=== PATIENT | female | born 1995 | race Caucasian/White ===

== ENCOUNTER → 2022-10-19 | Outpatient (CLI) | payer SELFPAY ==
[2022-10-19 13:11] LABS: Absolute Lymphocyte Count 1.02 X10^3/uL (0.83-4.51); Absolute Neutrophil Count 6.3 X10^3/uL (2.0-7.7); Basophil# 0.01 X10^3/uL; Basophil% 0.1 % (0-1); Eosinophil# 0.01 X10^3/uL; Eosinophils% 0.1 % (0-5); Hematocrit 36.8 % (37-47); Hemoglobin 12.2 g/dL (12.0-15.0); Lymphocyte # 1.02 X10^3/ul (0.83-4.51); Lymphocyte % 13.1 % (19-41); Mean Corp Hgb Conc 33.2 g/dL (32-36); Mean Corpuscular Hgb 29.5 pg (27.0-32.0); Mean Corpuscular Volume 89.1 fL (81-99); Mean Platelet Vol. 9.4 fl (6.2-12.0); Monocyte# 0.42 X10^3/uL; Monocyte% 5.4 % (0-10); NRBC Flagged by Analyzer 0 % (0-5); Neutrophil # 6.29 X10^3/uL (2.7-7.7); Platelet Count 309 K/mm3 (150-450); RBC Distribution Width CV 11.4 % (11.6-14.6); RBC Distribution Width SD 36.9 fl (35.1-43.9); Red Blood Count 4.13 M/mm3 (4.2-5.4); White Blood Count 7.8 K/mm3 (4.4-11.0)
[2022-10-19 13:50] LABS: NATERA MAILED SPECIMEN
[2022-10-19 14:19] LABS: HIV - WCH Non-Reactive (Nonreactive); Rubella IgG Reactive (Nonreactive); Syphilis Antibodies Non-reactive
[2022-10-19 14:38] LABS: Amphetamine Urine VISTA NEGATIVE (<1000 ng/mL); Barbiturate Urine VISTA NEGATIVE (< 200 ng/mL); Benzodiazepine Urine VISTA NEGATIVE (< 200 ng/mL); Cocaine Urine VISTA NEGATIVE (< 300 ng/mL); Ecstacy Urine VISTA NEGATIVE (< 500 ng/mL); Methadone Urine VISTA NEGATIVE (< 300 ng/mL); PCP Urine VISTA NEGATIVE (< 25 ng/mL); THC Urine VISTA NEGATIVE (< 50 ng/mL); Vista UDS pH Range 7
[2022-10-28 18:28] LABS: HPV APTIMA, High Risk Negative (Negative); HPV Reflexed? YES, CHARGE PATIENT
== END | disposition home or self-care (01) ==
PROVIDERS: Referring Provider Registered Nurse; Visit Provider Registered Nurse
DX: Z34.00 Encounter for supervision of normal first pregnancy, unspecified trimester (principal); Z12.4 Encounter for screening for malignant neoplasm of cervix
CPT/HCPCS: 36415; 80307; 85025; 86703; 86762; 86780; 86850; 86900; 86901; 87086; 87088; 87624; 88175; G0145

== ENCOUNTER → 2022-11-16 | Outpatient (CLI) | payer SELFPAY, OTHER ==
--- NOTE | 2022-11-16 08:09 | US_ITS ---
STUDY: SECOND AND THIRD TRIMESTER OBSTETRICAL ULTRASOUND REASON FOR EXAM: Female, 27 years old Anatomy scan LMP: 07/04/2022. TECHNIQUE: Transabdominal and Transvaginal TECHNICAL QUALITY: Adequate. PRIOR ULTRASOUND: None. FINDINGS: There is a single intrauterine fetus. The fetus is in a cephalic presentation. There is demonstrated cardiac activity with a heart rate of 132 bpm. There is a normal amniotic fluid volume. The largest amniotic fluid pocket measures 4.6 x 4.1 cm. The amniotic fluid index (IZZY) is within normal limits. The placenta is fundal in location. There are Grade 0 placental changes. The cervix measures 3.7 cm in length. The bilateral adnexal regions are normal. BIOMETRY: BPD: 4.67 cm: 20 weeks, 1 days HC: 16.98 cm: 19 weeks, 4 days AC: 15.14 cm: 20 weeks, 3 days FL: 3.08 cm: 19 weeks, 4 days CI: 81% FL/BPD: 66% FL/HC: FL/AC: 20% HC/AC: 1.12 age by current US: 19 weeks, 5 days. TOMMIE by current US: 04/07/2022. Estimated weight: 328 grams, +/- 29 grams, 62 %. Age by LMP: 19 weeks, 5 days. TOMMIE by LMP: 04/07/2022. ANATOMY: Gender: Male Cranium: Normal lateral ventricles. Normal choroid plexus. Normal cerebellum. Normal cisterna magna. Normal face, nose and lips. Chest: Normal 4-chamber heart. Abdomen/Pelvis: Normal diaphragm. Normal stomach. Normal abdominal wall. Normal cord insertion. Normal 3 vessel cord. Normal kidneys. Normal bladder. Spine: Normal cervical spine. Normal thoracic spine. Normal lumbar spine. Normal sacrum. Extremities: Normal bilateral upper extremities. Normal bilateral lower extremities. IMPRESSION: Single live intrauterine gestation with a mean gestational age of 19 weeks and 5 days. Electronically Signed: Adi Acuna MD at 12:41 EST , STUDY: FIRST TRIMESTER OBSTETRICAL ULTRASOUND REASON FOR EXAM: Female, 27 years old . Cervical length measurement LMP: 07/26/2022. TECHNIQUE: Transvaginal TECHNICAL QUALITY: Adequate. PRIOR ULTRASOUND: None. FINDINGS: The cervical length measures 3.7 cm US/OB Anatomy Scan IMPRESSION: The cervical length measures 3.7 cm. Electronically Signed: Adi Acuna MD at 12:41 EST ,
== END | disposition home or self-care (01) ==
PROVIDERS: Visit Provider Registered Nurse
DX: Z36.9 Encounter for antenatal screening, unspecified (principal); Z3A.19 19 weeks gestation of pregnancy
CPT/HCPCS: 76805; 76817

== ENCOUNTER → 2023-01-12 | Outpatient (CLI) | payer OTHER, SELFPAY ==
[2023-01-12 09:28] LABS: Absolute Lymphocyte Count 1.33 X10^3/uL (0.83-4.51); Absolute Neutrophil Count 6.5 X10^3/uL (2.0-7.7); Basophil# 0.02 X10^3/uL; Basophil% 0.2 % (0-1); Eosinophil# 0.06 X10^3/uL; Eosinophils% 0.7 % (0-5); Hematocrit 33.2 % (37-47); Hemoglobin 10.6 g/dL (12.0-15.0); Lymphocyte # 1.33 X10^3/ul (0.83-4.51); Lymphocyte % 15.3 % (19-41); Mean Corp Hgb Conc 31.9 g/dL (32-36); Mean Corpuscular Hgb 29.4 pg (27.0-32.0); Mean Platelet Vol. 9.3 fl (6.2-12.0); NRBC Flagged by Analyzer 0 % (0-5); Neutrophil # 6.53 X10^3/uL (2.7-7.7); Neutrophil % 75.1 % (47-70); Platelet Count 277 K/mm3 (150-450); RBC Distribution Width CV 11.8 % (11.6-14.6); RBC Distribution Width SD 39.3 fl (35.1-43.9); Red Blood Count 3.61 M/mm3 (4.2-5.4); White Blood Count 8.7 K/mm3 (4.4-11.0)
[2023-01-12 09:47] LABS: Glucose Challenge Gest 1H 50g 76 mg/dL (70-140)
[2023-01-12 10:19] LABS: HIV - WCH Non-Reactive (Nonreactive); Syphilis Antibodies Non-reactive
== END | disposition home or self-care (01) ==
LOC: PAVLAB 09:11
PROVIDERS: Referring Provider Registered Nurse; Visit Provider Registered Nurse
DX: Z34.00 Encounter for supervision of normal first pregnancy, unspecified trimester (principal)
CPT/HCPCS: 36415; 82950; 85025; 86703; 86780

== ENCOUNTER 2023-03-17 10:55 | Inpatient (IN) | payer SELFPAY, OTHER ==
[2023-03-17] VITALS (18 sets, daily range): BP systolic 106–131; BP diastolic 64–93; PULSE 76–98; RESP 14–16; TEMP 36.2–37.1; O2SAT 97–100; BMI 26.4
[2023-03-17] MEDS: Lactated Ringers 1,000 ML 999 ML IV (11:30)
[2023-03-17 11:47] LABS: Absolute Lymphocyte Count 1.05 X10^3/uL (0.83-4.51); Absolute Neutrophil Count 6.5 X10^3/uL (2.0-7.7); Basophil# 0.01 X10^3/uL; Basophil% 0.1 % (0-1); Eosinophil# 0.02 X10^3/uL; Eosinophils% 0.2 % (0-5); Hematocrit 36.1 % (37-47); Hemoglobin 12.3 g/dL (12.0-15.0); Lymphocyte # 1.05 X10^3/ul (0.83-4.51); Lymphocyte % 12.9 % (19-41); Mean Corp Hgb Conc 34.1 g/dL (32-36); Mean Corpuscular Hgb 29.9 pg (27.0-32.0); Mean Corpuscular Volume 87.8 fL (81-99); Mean Platelet Vol. 10.4 fl (6.2-12.0); Monocyte# 0.54 X10^3/uL; Monocyte% 6.6 % (0-10); NRBC Flagged by Analyzer 0 % (0-5); Neutrophil # 6.49 X10^3/uL (2.7-7.7); Neutrophil % 79.7 % (47-70); Platelet Count 263 K/mm3 (150-450); RBC Distribution Width CV 11.8 % (11.6-14.6); RBC Distribution Width SD 37.8 fl (35.1-43.9); Red Blood Count 4.11 M/mm3 (4.2-5.4); White Blood Count 8.2 K/mm3 (4.4-11.0)
[2023-03-17] MEDS: Lactated Ringers 1,000 ML 150 ML IV (12:32)
--- NOTE | 2023-03-17 12:52 | HP.PCM.OB_ITS ---
HPI - General General Date of Admission: 03/17/23 HPI Narrative JAYLEN WATKINS, is a 27 F who presents for LTCS due to breech and oligohydramnios. she had a routine visit today and had an reza of 2 cm and was breech. she has had nl fm and no regular ctx. she denies lof Maternal Data Information TOMMIE Calculator Estimated Delivery Date Method Current WG Current Estimate 04/07/23 LMP (Certain) 37w 0d PFSH PFSH Medical History (Updated 03/17/23 @ 12:[address] Lyric Coburn MD) History of malignant hyperthermia Oligohydramnios Home Medications vitamins no.163-iron bis-gly 20 mg-folate no.10 1 mg tablet (PNV Tabs 20-1) 1 tab PO DAILY 10/17/22 [History Last Taken 03/16/23 19:00 1 tab] ferrous sulfate 325 mg (65 mg iron) tablet 325 mg PO DAILY anemia 03/17/23 [History Last Taken 03/16/23 19:00 325 mg] Allergy/AdvReac Type Severity Reaction Status Date / Time No Known Allergies Allergy Verified 03/17/23 09:50 Family History Grandmother Uterine cancer, Onset Age: 50 Maternal Surgical History (Updated 03/17/23 @ 11:48 by Rodo Parker) History of surgery Social History adopted: No household members: spouse housing: house current occupational status: employed current occupation: [employer] current occupational exposures/hazards: No pets and animals: No history of recent travel: No sexually active: Yes Smoking Status: Never smoker alcohol intake: never substance use type: does not use well-balanced diet: daily or most days caffeine: Yes Type: coffee Number of servings: 1 eating out: rarely or never during the past year weight has: remained stable what type of physical activity do you participate in: none sandra/tenriism: Judaism seatbelt use: sometimes do you feel safe at home: Yes additional social history: Faustino- [employer] History 1 Elective abortions Hx Para 0 Spontaneous abortions Hx # Term Pregnancies Ectopic pregnancies Hx # Pregnancies Multiple births # of living children Visit Details Expected Delivery Route/Plan Labor Preferences- CB/BF classes: enc labor support person: Faustino labor intervention preferences: limited interventions pain management options preferred: open to epidural, hoping for unmedicated cut cord/dad catch: cord : yes PP control planned: NFP discussed possible routes of delivery and associated risks: [] special requests: [] Plans Covid status: unvaccinated Flu vaccine: declines Tdap vaccine: declines Rhogam: na LARC form signed: Problem list reviewed and updated with the most current plan of care details and appropriate orders placed. Relevant counseling for the gestational age provided. Continue routine care and follow up unless otherwise noted in visit notes/problem list details OB Flowsheet Initial Weight: Not Recorded Date -?-?-?-?-?-?--?-?-?-?-?-?- EGA Weight BP Urine Prot -?-?-?-?-?-?-?-?-?-?-?-?- Glucose FHR FuHt Pres Dilation -?-?-?-?-?-?-?-?-?-?-?-?- Effaced St Visit Note 10/19/22 -?-?-?-?-?-?-?-?-?-?-?-?- 15w 5d 121 lb 6 oz 134/80 -?-?-?-?-?-?-?-?-?-?-?-?- 144 15 -?-?-?-?-?-?-?-?-?-?-?-?- LC- HC/AC/FL =15 .5, TOMMIE based on LMP. 11/16/22 -?-?-?-?-?-?-?-?-?-?-?-?- 19w 5d 129 lb 6 oz 122/70 Nega tive -?-?-?-?-?-?-?-?-?-?-?-?- Negative 157 -?-?-?-?-?-?-?-?-?-?-?-?- MH-No VB. Had a natomy US today. Denies concerns 12/22/22 -?-?--?-?-?-?-?-?-?-?-?-?- 24w 6d 133 lb 124/78 Negative -?-?-?-?-?-?-?-?-?-?-?-?- Negative 138 23 -?-?-?-?-?-?-?-?-?-?-?-?- LC- doing well. no vb/lof. occ fm. normal anatomy. 28 week labs ordered. 01/12/23 -?-?-?-?-?-?-?-?-?-?-?-?- 27w 6d 140 lb 6 oz 122/80 Nega tive -?-?-?-?-?-?-?-?-?-?-?-?- Negative 153 27 -?-?-?-?-?-?-?-?-?-?-?-?- JV- no lof, vagi nal bleeding, or dec fm. normal glucola. encouraged use of chlorophyll for mild anemia 01/24/23 -?-?-?-?--?-?-?-?-?-?-?-?- 29w 4d 142 lb 127/77 Negative -?-?-?-?-?-?-?-?-?-?-?-?- Negative 138 29 -?-?-?-?-?-?-?-?-?-?-?-?- LC- no lof/vb/ct x. good fm. started on iron supplement. 02/07/23 -?-?-?-?-?-?-?-?-?-?-?-?- 31w 4d 145 lb 117/81 Negative -?-?-?-?-?-?-?-?-?-?-?-?- Negative 142 31 -?-?-?-?-?-?-?-?-?-?-?-?- Lc- no lof/vb/ct x. good fm. denies concerns. 02/21/23 -?-?-?-?-?-?-?-?-?-?-?-?- 33w 4d 149 lb 120/74 Negative -?-?-?-?-?-?-?--?-?-?-?-?- Negative 138 33 -?-?-?-?-?-?-?-?-?-?-?-?- Lc- no lof/vb/ct x. larc signed, declines tdap. no concerns. 03/07/23 -?-?-?-?-?-?-?-?-?-?-?-?- 35w 4d 151 lb 145/83 137/86 128/81 Negative -?-?-?-?-?-?-?-?-?-?-?-?- Negative 142 35 -?-?-?-?-?-?-?-?-?-?-?-?- LC- no lof/vb/ct x. good fm. no concerns. reviewed labor signs 03/17/23 -?-?-?-?-?-?-?-?-?-?-?-?- 37w 0d 154 lb 5.177 oz 125/93 -?-?-?-?-?-?-?-?-?-?-?-?- -?-?-?-?-?-?-?-?-?-?-?-?- NST FHR Rate Baby A Baseline: 130 Variability:: Moderate Accelerations:: 15 x 15 Decelerations:: None NST Reactive:: Yes FHR Category:: Category I Uterine Activity:: irregular ROS Constitutional Constitutional: Reports systems reviewed and no addt'l complaints, except as documented Eyes Eyes: Denies change in vision ENT HEENT: Reports systems reviewed and no addt'l complaints, except as documented; Denies headache(s) Cardiovascular Cardiovascular: Reports systems reviewed and no addt'l complaints, except as documented; Denies chest pain or dyspnea Respiratory/Chest Respiratory/Chest: Reports systems reviewed and no addt'l complaints, except as documented Gastrointestinal Gastrointestinal: Reports systems reviewed and no addt'l complaints, except as documented; Denies abdominal pain Genitourinary Genitourinary: Reports systems reviewed and no addt'l complaints, except as documented, contractions Details: present (irregular) and movement Details: present; Denies dysuria or genital lesions Musculoskeletal Musculoskeletal: Reports systems reviewed and no addt'l complaints, except as documented Neurologic Neurologic: Reports systems reviewed and no addt'l complaints, except as documented Endocrine Endocrinology: Reports systems reviewed and no addt'l complaints, except as documented Vital Signs Vital Signs Vital Signs: 03/17/23 11:12 03/17/23 11:12 03/17/23 11:13 Temperature Temperature Source Temporal Pulse Rate 95 Blood Pressure 125/93 H BP Systolic 125 BP Diastolic 93 Pulse Ox 03/17/23 11:13 03/17/23 11:13 03/17/23 11:13 Temperature 98.3 F Temperature Source Pulse Rate 92 Blood Pressure BP Systolic BP Diastolic Pulse Ox 99 Weight Weight: 154 lb 5.177 oz Body Mass Index (BMI) 26.4 Physical Exam Const alert, oriented x3, no apparent distress and healthy appearing HEENT normocephalic and moist oral mucous membranes Head and Scalp: atraumatic Neck full ROM, no lymphadenopathy, supple and thyroid normal General: trachea midline Lymph Lymphatic: no lymphadenopathy noted Chest inspection of chest normal Resp normal respiratory effort Cardio regular rate GI normal to inspection, nondistended, normoactive bowel sounds, soft to palpation and non-tender Inspection: gravid external exam normal Manual OB Exam: estimated gestational size appropriate, presentation breech, dilated, effaced and station Extremity normal to inspection General Extremity: Negative for edema Skin no rashes or lesions noted Neuro no focal motor deficits and deep tendon reflexes 2+ bilaterally Motor Exam: strength 5/5 throughout and clonus absent Psych mental status grossly normal Labs Labs Labs: Blood Type AB POSITIVE Antibody Screen NEGATIVE Hct 36.1 % (37-47) L Hgb 12.3 g/dL (12.0-15.0) Obstetrics US Syphilis Total Ab Non-reactive Rubella IgG Antibody Reactive (Nonreactive) Hep Bs Antigen Pending HIV 1&2 Antibody Non-Reactive (Nonreactive) Glucose 1 Hr 50 gm 76 mg/dL (70-140) Assessment & Plan (1) : QUALIFIERS: Weeks of gestation: 27 weeks Qualified Code(s): Z3A.27 - 27 weeks gestation of COMMENT: NIPT low risk, carrier testing neg. 274/274. nl anatomy (2) Supervision of normal first : COMMENT: PRR. , TOMMIE 04/07/23,boy- Osman Faustino (3) Mild anemia: COMMENT: iron supplementation (4) Breech presentation: (5) Oligohydramnios in third trimester: COMMENT: proceed with LTCS delivery 37 weeks PLAN: Plan After discussing the patient's diagnosis and treatment plan options, patient wishes to proceed with surgical management. I have discussed with the patient the risks, benefits, and alternatives of the procedure which include but are not limited to risks of anesthesia, bleeding, infection, possible damage to bowel, bladder, or surrounding vasculature which could lead to additional surgery to evaluate any complications. Patient agrees to procedure and wishes to proceed. ACOG/uptodate references given for additional information regarding procedure.
[2023-03-17 13:12] LABS: Syphilis Antibodies Non-reactive
[2023-03-17 13:32] LABS: Hepatitis B Surface Antigen Non-Reactive (Nonreactive); Hepatitis C Antibody Non-Reactive (Nonreactive)
[2023-03-17] MEDS: Acetaminophen 500 MG Tablet 1000 MG PO ×2 (13:58→20:32)
[2023-03-17 14:30] LABS: Chlamydia Trachomatis by PCR Negative (Negative); Neisserai gonorrhoeae by PCR Negative (Negative); Probe Check PASS; Sample Adequacy Control PASS; Specimen Processing Control PASS
[2023-03-17] MEDS: Sodium Citrate/Citric Acid 30 ML UDC PO (15:20)
[2023-03-17] MEDS: Cefazolin 2 GM in 0.9% Normal Saline 100 ML IV (15:35)
[2023-03-17] MEDS: Methylergonovine 0.2 MG/ML Ampul IM (16:01)
[2023-03-17] MEDS: Oxytocin 15 Units/NS 250ml 15 UNITS/250 ML IV.SOLN 83 UNITS IV (16:35)
--- NOTE | 2023-03-17 17:00 | OP.PCM_ITS ---
Assessment & Plan (1) Supervision of normal first : COMMENT: PRR. , TOMMIE 04/07/23,jossie Brewer Faustino (2) : QUALIFIERS: Weeks of gestation: 27 weeks Qualified Code(s): Z3A.27 - 27 weeks gestation of COMMENT: NIPT low risk, carrier testing neg. 274/274. nl anatomy (3) Breech presentation: (4) Oligohydramnios in third trimester: COMMENT: proceed with LTCS delivery 37 weeks (5) Mild anemia: COMMENT: iron supplementation (6) delivery delivered: COMMENT: SM breech LTCS [place] [employer] 37 Maternal Data Information TOMMIE Calculator Estimated Delivery Date Method Current WG Current Estimate 04/07/23 LMP (Certain) 37w 0d Final TOMMIE Source: LMP Details Operative Information Date of Procedure: 03/17/23 Pre-Operative Diagnosis: breech Post-Operative Diagnosis: same Indications for : Breech Indications Narrative: Surgeon: Lyric Coburn MD Classification: Scheduled Procedure Type: low transverse commodity buyer #2: Daya Dominique Type of Anesthesia: Spinal Special Medications: none Antibiotic Given: Ancef 2 grams IV x1 Drain: Guthrie to straight drain Estimated Blood Loss: 600 Fluids Replaced: crystalloid Findings Description of Procedure: Spinal anesthesia was placed without difficulty. Guthrie catheter was placed. The patient was placed in the dorsal supine position with leftward tilt. Patient was prepped and draped in the normal sterile fashion. Pfannenstiel skin incision was made with the scalpel and carried through to the underlying layer of fascia with the scalpel. Fascia was nicked in the midline and the incision extended laterally. The rectus bellies were dissected off superiorly and inferiorly with out complication both sharply and bluntly. The peritoneum was entered digitally. The incision was stretched and a low transverse uterine incision was made with the scalpel. The buttox was delivered atraumatically and the right and left legs were swept anteriorly and delivered, followed by the body and the arms which were swept anteriorly and delivered. Gentle traction was placed on the mentum to flex the head which was delivered without complication. The cord was clamped and cut and the infant was handed off to awaiting nurse. The placenta was delivered spontaneously immediately following and was noted to be intact and have a three-vessel cord. The uterus was exteriorized cleared of all clots and debris, and the incision was closed in a double layer closure using #1 Monocryl. The ovaries and fallopian tubes were noted to be within normal limits. The uterus was returned to the maternal abdomen and gutters were cleared of all clots and debris. The peritoneum was closed with 3-0 Monocryl in a running fashion. Gloves were changed prior to fascial closure. Fascia was closed with 0 PDS in a running fashion. Subcutaneous tissue was copiously irrigated and the skin was closed with 3-0 Monocryl in a subcuticular fashion. Mepilex dressing was applied without complication. Patient was taken to recovery in stable condition. It was discussed with the patient that based on the clinical information obtained du ring this encounter, combined with her history, at this time I would recommend vaginal or cesareans for future deliveries if further pregnancies are desired. Amniotic Membrane Rupture Type: Artificial Amniotic Fluid Description: Clear Placenta Disposition: [facility] Cord Vessel Description: 3 Vessels Delayed Cord Clamping: Yes Complications Risks of Surgery Discussed w/Patient: Bleeding, Infection, Need for Future C- Sections and Injury to surrounding structure(s) including bowel and bladder Vaginal Delivery Complication Complications: None Admit VTE Documentation VTE Present on Admission: No VTE Mechan Device Prophylaxis: SCD's Procedures Urinary/Genital [id number]: [id number] Delivery [facility]
--- NOTE | 2023-03-17 17:01 | DCINST_ITS ---
Discharge Instructions Diet Discharge Diet: No restrictions Activity Discharge Activity: Return to Normal Activity, May Drive (when pain free and off narcotic pain meds), May Shower and May Take a Tub Bath (in 4 weeks) May resume sexual activity in: 6 weeks Weight Bearing Status: Full weight bearing Lifting Restrictions: under 30 lbs for 6 weeks Dressing / Incision Call your doctor if your incision/area has: Continuous Slow Oozing, Sudden Increased Bleeding, Increased Pain/ Swelling, Increased Redness, Foul Smelling Discharge and - Call your doctor if you observe: Fever of 101 or Higher, Using more than 1 pad per hour, Shortness of breath, Chest pain and Uncontrolled pain Suture Line Care: Avoid Pulling/Pushing and Avoid Pinching/Bending Change Dressing in: 1 week (leave open to air after removed) Remove Dressing in: 1 week (if present) Cleanse incision/area with: Soap & Water and Keep Dressing Clean & Dry Follow Up Care Please Follow Up With: Lyric Coburn MD When: Call to make an appointment with your doctor for a postop visit in 2 and 6 weeks. Test Results: Test results from this visit will be discussed in further detail at your follow- up appointment, if applicable. Discharge Plan Admission Admit Date/Time: 03/17/23 10:55 Attending Provider: Lyric Coburn Primary Care Provider: Care Physician,No Primary Discharge Orders/Prescriptions Prescriptions: No Action PNV Tabs 20-1 20 mg iron- 1 mg tablet 1 tab PO DAILY ferrous sulfate 325 mg (65 mg iron) Tablet 325 mg PO DAILY Referrals / Follow Up: Care Physician,No Primary [Primary Care Provider] -
[2023-03-17] MEDS: Ketorolac 30 MG/ML Syringe IV ×2 (17:17→23:14)
[2023-03-17] MEDS: 0.9% Saline Lock 10 ML Syringe IV (17:18)
[2023-03-17] MEDS: Lactated Ringers 1,000 ML 100 ML IV (19:52)
--- NOTE | 2023-03-17 22:55 | NURSING ---
Pt up for first time with this RN and Calli PATEL at [id number]. When sitting on side of the bed, pt stated she felt slightly dizzy but not faint or like she was going to pass out. This RN instructed that we will just stay sitting for a few minutes and see if it gets better. Pt stated she felt better and wanted to try to stand up. When standing up and taking a few steps in place, pt said she felt kind of dizzy again but it wasn't severe and again did not feel like she was going to pass out. She opted to want to walk a few steps instead of get in bed and said she felt good, just slight tightness in her incision area. Pt got back in bed and felt fine.
[2023-03-18] VITALS (7 sets, daily range): BP systolic 100–123; BP diastolic 53–73; PULSE 76–94; RESP 14–16; TEMP 36.9–37.3; O2SAT 97–99
[2023-03-18] MEDS: Acetaminophen 500 MG Tablet 1000 MG PO ×4 (02:39→20:04)
[2023-03-18 04:45] LABS: Hematocrit 31.3 % (37-47); Hemoglobin 10.3 g/dL (12.0-15.0); Mean Corp Hgb Conc 32.9 g/dL (32-36); Mean Corpuscular Hgb 29.9 pg (27.0-32.0); Mean Corpuscular Volume 90.7 fL (81-99); Mean Platelet Vol. 10.2 fl (6.2-12.0); Platelet Count 216 K/mm3 (150-450); RBC Distribution Width CV 11.8 % (11.6-14.6); RBC Distribution Width SD 38.5 fl (35.1-43.9); Red Blood Count 3.45 M/mm3 (4.2-5.4); White Blood Count 9.4 K/mm3 (4.4-11.0)
[2023-03-18] MEDS: Ketorolac 30 MG/ML Syringe IV ×2 (05:23→12:10)
[2023-03-18] MEDS: 0.9% Saline Lock 10 ML Syringe IV ×2 (05:23→12:11)
[2023-03-18] MEDS: Senna/Docusate Sodium 1 Tablet PO (08:29)
--- NOTE | 2023-03-18 10:00 | PCM.PN.OB ---
Subjective Subjective Patient doing well without complaints. Tolerating PO. Ambulating and voiding without difficulty. Feeding well. Denies chest pain, shortness of breath, calf pain/swelling, fevers, chills, lightheadedness. Objective Data Objective Data Vital Signs: Vital Signs Temp Pulse Resp BP Pulse Ox O2 Del Method 98.6 F 76 14 100/70 97 Room Air 03/18/23 08:35 03/18/23 08:35 03/18/23 08:35 03/18/23 08:35 03/18/23 08:35 03/18/23 08:35 Oxygen Delivery Method Room Air Weight: 154 lb 5.177 oz Body Mass Index (BMI) 26.4 Intake & Output: Intake and Output for Last 24 Hours 03/16/23 03/17/23 03/18/23 23:59 23:59 23:59 Intake Total 2070 / 2070 700 / 700 Output Total 1650 / 1650 800 / 800 Balance 420 / 420 -100 / -100 Lab / Micro Data Attestation: I reviewed the patient's lab results. Result Diagrams: 03/18/23 04:36 Labs: Laboratory Results - last 24 hr 03/17/23 11:30: WBC 8.2, RBC 4.11 L, Hgb 12.3, Hct 36.1 L, MCV 87.8, MCH 29.9, MCHC 34.1, RDW Std Deviation 37.8, RDW Coeff of Kalani 11.8, Plt Count 263, MPV 10.4, Immature Gran % (Auto) 0.500, Neut % (Auto) 79.7 H, Lymph % (Auto) 12.9 L, [place] % (Auto) 6.6, Eos % (Auto) 0.2, Baso % (Auto) 0.1, Absolute Neuts (auto) 6.5, Absolute Lymphs (auto) 1.05, Nucleated RBC % 0 03/17/23 11:30: Blood Type AB POSITIVE, Antibody Screen NEGATIVE 03/17/23 11:30: Syphilis Total Ab Non-reactive 03/17/23 11:30: Hep Bs Antigen Non-Reactive, Hepatitis C Antibody Non-Reactive 03/17/23 12:10: Chlam trachomat DNA PCR Negative, N.gonorrhoeae DNA (PCR) Negative 03/18/23 04:36: WBC 9.4, RBC 3.45 L, Hgb 10.3 L, Hct 31.3 L, MCV 90.7, MCH 29.9, MCHC 32.9, RDW Std Deviation 38.5, RDW Coeff of Kalani 11.8, Plt Count 216, MPV 10.2 Micro: Microbiology 03/17/23 14:35 Genital vaginal Group B Streptococcus Culture - Preliminary ROS Constitutional Constitutional: Reports systems reviewed and no addt'l complaints, except as documented Eyes Eyes: Reports systems reviewed and no addt'l complaints, except as documented ENT HEENT: Reports systems reviewed and no addt'l complaints, except as documented Cardiovascular Cardiovascular: Reports systems reviewed and no addt'l complaints, except as documented Respiratory/Chest Respiratory/Chest: Reports systems reviewed and no addt'l complaints, except as documented Gastrointestinal Gastrointestinal: Reports systems reviewed and no addt'l complaints, except as documented Genitourinary Genitourinary: Reports systems reviewed and no addt'l complaints, except as documented Musculoskeletal Musculoskeletal: Reports systems reviewed and no addt'l complaints, except as documented Integumentary Integumentary: Reports systems reviewed and no addt'l complaints, except as documented Neurologic Neurologic: Reports systems reviewed and no addt'l complaints, except as documented Psychiatric Psychiatric: Reports systems reviewed and no addt'l complaints, except as documented Endocrine Endocrinology: Reports systems reviewed and no addt'l complaints, except as documented Hematologic/Lymphatic Hematologic/Lymphatic: Reports systems reviewed and no addt'l complaints, except as documented Allergic/Immunologic Allergic/Immunologic: Reports systems reviewed and no addt'l complaints, except as documented Physical Exam Const alert and no apparent distress Eyes PERRL Neck full ROM and no lymphadenopathy Lymph Lymphatic: no lymphadenopathy noted Chest inspection of chest normal and palpation of chest normal Resp normal respiratory effort, normal air movement, no retractions and no use of accessory muscles Cardio regular rate and regular rhythm GI normal to inspection, nondistended, normoactive bowel sounds GI Narrative: fundus firm, at u. moderate lochia. no clots Back/Spine normal ROM Extremity normal to inspection and full ROM Skin no rashes or lesions noted Skin Narrative: dressing clean, dry and intact. Assessment & Plan (1) delivery delivered: COMMENT: SM breech LTCS [place] boy azul 35 PLAN: s/p LTCS PPD #1 1. routine post care 2. breast feeding- support given 3. rh positive 4. rubella immune
[2023-03-18] MEDS: Naproxen 500 MG Tablet PO (17:59)
[2023-03-19] MEDS: Naproxen 500 MG Tablet PO ×2 (02:06→09:21)
[2023-03-19] MEDS: Acetaminophen 500 MG Tablet 1000 MG PO ×2 (02:07→08:19)
[2023-03-19 02:09] VITALS: BP 115/71; PULSE 85; RESP 16; TEMP 37.1; O2SAT 98
[2023-03-19 08:18] VITALS: BP 112/74; PULSE 86; RESP 16; TEMP 37.1; O2SAT 97
[2023-03-19] MEDS: Senna/Docusate Sodium 1 Tablet PO (08:19)
--- NOTE | 2023-03-19 08:49 | PCM.PN.OB ---
Subjective Subjective Patient doing well without complaints. Tolerating PO. Ambulating and voiding without difficulty. Feeding well. Denies chest pain, shortness of breath, calf pain/swelling, fevers, chills, lightheadedness. Objective Data Objective Data Vital Signs: Vital Signs Temp Pulse Resp BP Pulse Ox O2 Del Method 98.7 F 86 16 112/74 97 Room Air 03/19/23 08:18 03/19/23 08:18 03/19/23 08:18 03/19/23 08:18 03/19/23 08:18 03/19/23 08:18 Oxygen Delivery Method Room Air Weight: 154 lb 5.177 oz Body Mass Index (BMI) 26.4 Intake & Output: Intake and Output for Last 24 Hours 03/17/23 03/18/23 03/19/23 23:59 23:59 23:59 Intake Total 2070 / 2070 700 / 700 Output Total 1650 / 1650 1500 / 1500 Balance 420 / 420 -800 / -800 Lab / Micro Data Attestation: I reviewed the patient's lab results. Result Diagrams: 03/18/23 04:36 Micro: Microbiology 03/17/23 14:35 Genital vaginal Group B Streptococcus Culture - Preliminary Physical Exam Const alert and no apparent distress Eyes PERRL Neck full ROM and no lymphadenopathy Lymph Lymphatic: no lymphadenopathy noted Chest inspection of chest normal and palpation of chest normal Resp normal respiratory effort, normal air movement, no retractions and no use of accessory muscles Cardio regular rate and regular rhythm GI normal to inspection, nondistended, normoactive bowel sounds GI Narrative: fundus firm, at u. scant lochia. no clots Back/Spine normal ROM Extremity normal to inspection and full ROM Skin no rashes or lesions noted Skin Narrative: dressing clean, dry and intact. Assessment & Plan (1) delivery delivered: COMMENT: SM breech LTCS [place] boy azul 35 PLAN: s/p LTCS PPD # 2 1. routine post care 2. breast feeding- support given 3. rh positive 4. rubella immune 5. d/c home today
--- NOTE | 2023-03-19 08:51 | PCM.DC.SUM ---
Providers Date of Admission: 03/17/23 Date of Discharge: 03/19/23 Primary Care Physician: No Primary Care Phys Reason For Visit: PRIMARY C SECTION Diagnosis Discharge Diagnosis (1) delivery delivered: Status: Acute Code(s): O82 - Encounter for delivery without indication Plan: s/p LTCS PPD # 2 1. routine post care 2. breast feeding- support given 3. rh positive 4. rubella immune 5. d/c home today Medications at Discharge Home Medications vitamins no.163-iron bis-gly 20 mg-folate no.10 1 mg tablet (PNV Tabs 20-1) 1 tab PO DAILY 10/17/22 ferrous sulfate 325 mg (65 mg iron) tablet 325 mg PO DAILY anemia 03/17/23 Hospital Course Operations section Procedures None Summary of Care Provided Hospital Course: c/s for breech and oligo at 37 weeks. stable course. Physical Exam Const alert and no apparent distress Eyes PERRL Neck full ROM and no lymphadenopathy Lymph Lymphatic: no lymphadenopathy noted Chest inspection of chest normal and palpation of chest normal Resp normal respiratory effort, normal air movement, no retractions and no use of accessory muscles Cardio regular rate and regular rhythm GI normal to inspection, nondistended, normoactive bowel sounds GI Narrative: fundus firm, at u. scant lochia. no clots Back/Spine normal ROM Extremity normal to inspection and full ROM Skin no rashes or lesions noted Skin Narrative: dressing clean, dry and intact. Weight / BMI Weight Weight: 154 lb 5.177 oz Body Mass Index (BMI) 26.4 ABG / Lab / Microbiology Data Result Diagrams: 03/18/23 04:36 Microbiology: Microbiology 03/17/23 14:35 Genital vaginal Group B Streptococcus Culture - Preliminary D/C Instructions Discharge Diet: No restrictions May resume sexual activity in: 6 weeks Weight Bearing Status: Full weight bearing Call your doctor if your incision/area has: Continuous Slow Oozing, Sudden Increased Bleeding, Increased Pain/ Swelling, Increased Redness, Foul Smelling Discharge and - Call your doctor if you observe: Fever of 101 or Higher, Using more than 1 pad per hour, Shortness of breath, Chest pain and Uncontrolled pain Suture Line Care: Avoid Pulling/Pushing and Avoid Pinching/Bending Cleanse incision/area with: Soap & Water and Keep Dressing Clean & Dry Please Follow Up With: Lyric Coburn MD When: Call to make an appointment with your doctor for a postop visit in 2 and 6 weeks. Meaningful Use Info Meaningful Use Diagnoses (Choose all that apply): None applicable Discharge Plan Admission Admit Date/Time: 03/17/23 10:55 Attending Provider: Lyric Coburn Primary Care Provider: Wendi Physician,Erica Primary Discharge Orders/Prescriptions Prescriptions: Continued PNV Tabs 20-1 20 mg iron- 1 mg tablet 1 tab PO DAILY ferrous sulfate 325 mg (65 mg iron) Tablet 325 mg PO DAILY Referrals / Follow Up: Care Physician,No Primary [Primary Care Provider] - Disposition Disposition (needs filled in before D/C Order can be placed): Home, Self Care
== END 2023-03-19 10:00 | disposition home or self-care (01) | DRG 787 ==
PROVIDERS: Admitting Provider Obstetrics & Gynecology; Referring Provider Obstetrics & Gynecology; Visit Provider Obstetrics & Gynecology
DX: O32.1XX0 Maternal care for breech presentation, not applicable or unspecified (principal); O41.03X0 Oligohydramnios, third trimester, not applicable or unspecified; D64.9 Anemia, unspecified; Z37.0 Single live birth; Z3A.37 37 weeks gestation of pregnancy; O99.02 Anemia complicating childbirth
CPT/HCPCS: 59025; 59050; 85025; 85027; 86780; 86803; 86850; 86900; 86901; 87081; 87340; 87491; 87591; 94668; 99221; J7120; A4216; G0378; J2405; J3490

== ENCOUNTER → 2024-04-08 | Outpatient (CLI) | payer OTHER, SELFPAY ==
[2024-04-08 08:59] LABS: Absolute Lymphocyte Count 1.29 X10^3/uL (0.83-4.51); Absolute Neutrophil Count 3.7 X10^3/uL (2.0-7.7); Basophil# 0.01 X10^3/uL; Basophil% 0.2 % (0-1); Eosinophil# 0.03 X10^3/uL; Eosinophils% 0.5 % (0-5); Hematocrit 37.2 % (37-47); Hemoglobin 12.4 g/dL (12.0-15.0); Lymphocyte # 1.29 X10^3/ul (0.83-4.51); Lymphocyte % 23.6 % (19-41); Mean Corp Hgb Conc 33.3 g/dL (32-36); Mean Corpuscular Hgb 29.2 pg (27.0-32.0); Mean Corpuscular Volume 87.7 fL (81-99); Mean Platelet Vol. 9.1 fl (6.2-12.0); Monocyte# 0.47 X10^3/uL; Monocyte% 8.6 % (0-10); NRBC Flagged by Analyzer 0 % (0-5); Neutrophil # 3.65 X10^3/uL (2.7-7.7); Neutrophil % 66.9 % (47-70); Platelet Count 320 K/mm3 (150-450); RBC Distribution Width CV 11.8 % (11.6-14.6); RBC Distribution Width SD 37.6 fl (35.1-43.9); Red Blood Count 4.24 M/mm3 (4.2-5.4); White Blood Count 5.5 K/mm3 (4.4-11.0)
[2024-04-08 17:29] LABS: HIV - WCH Non-Reactive (Nonreactive); Hepatitis B Surface Antigen Non-Reactive (Nonreactive); Hepatitis C Antibody Non-Reactive (Nonreactive); Rubella IgG Reactive (Nonreactive); Syphilis Antibodies Non-reactive
[2024-04-10 02:07] LABS: Chlamydia By Nucleic Acid AMP Negative (Negative); Gonococcus By Nucleic Acid AMP Negative (Negative)
== END | disposition home or self-care (01) ==
PROVIDERS: Referring Provider Advanced Practice Midwife; Visit Provider Advanced Practice Midwife
DX: Z34.90 Encounter for supervision of normal pregnancy, unspecified, unspecified trimester (principal)
CPT/HCPCS: 36415; 85025; 86703; 86762; 86780; 86803; 86850; 86900; 86901; 87086; 87088; 87340; 87491; 87591

== ENCOUNTER → 2024-06-07 | Outpatient (CLI) | payer SELFPAY, OTHER ==
--- NOTE | 2024-06-07 12:21 | US_ITS ---
STUDY: SECOND AND THIRD TRIMESTER OBSTETRICAL ULTRASOUND REASON FOR EXAM: Female, 28 years old Anatomy scan LMP: January 18, 2024. TECHNIQUE: Transabdominal TECHNICAL QUALITY: Adequate. PRIOR ULTRASOUND: None. FINDINGS: There is a single intrauterine fetus. The fetus is in a cephalic presentation. There is demonstrated cardiac activity with a heart rate of 139 bpm. There is a normal amniotic fluid volume. The largest amniotic fluid pocket measures 4.2 cm x 4.6 cm. The amniotic fluid index (IZZY) is within normal limits. The placenta is posterior in location and is not low lying. There are Grade 1 placental changes. The cervix measures 6.7 cm in length. The adnexal regions are not visualized. BIOMETRY: BPD: 4.67 cm: 20 weeks, 1 days HC: 17.03 cm: 19 weeks, 4 days AC: 15.02 cm: 20 weeks, 2 days FL: 3.09 cm: 19 weeks, 4 days CI: 83.2% FL/BPD: 66.2% FL/HC: FL/AC: 20.6% HC/AC: 1.13 age by current US: 19 weeks, 4 days. TOMMIE by current US: October 28, 2024. Estimated weight: 325 grams, +/- 49 grams, 37 %. Age by LMP: 20 weeks, 1 days. TOMMIE by LMP: October 24, 2024. ANATOMY: Gender: Male Cranium: Normal lateral ventricles. Normal choroid plexus. Normal cerebellum. Normal cisterna magna. Normal face, nose and lips. Chest: Normal 4-chamber heart. Abdomen/Pelvis: Normal diaphragm. Normal stomach. Normal abdominal wall. Normal cord insertion. Normal 3 vessel cord. Normal kidneys. Normal bladder. Spine: Normal cervical spine. Normal thoracic spine. Normal lumbar spine. Normal sacrum. Extremities: Normal bilateral upper extremities. Normal bilateral lower extremities. US/OB Anatomy w/ Transvaginal IMPRESSION: Single live uterine gestation with mean gestational age of 19 weeks and 4 days. Electronically Signed: Adi Acuna MD at 15:01 EDT ,
== END | disposition home or self-care (01) ==
PROVIDERS: PCP Family Medicine; Referring Provider Obstetrics & Gynecology; Visit Provider Obstetrics & Gynecology
DX: O09.90 Supervision of high risk pregnancy, unspecified, unspecified trimester (principal); Z3A.00 Weeks of gestation of pregnancy not specified
CPT/HCPCS: 76805; 76817

== ENCOUNTER → 2024-07-30 | Outpatient (CLI) | payer OTHER, SELFPAY ==
[2024-07-30 10:22] LABS: Absolute Lymphocyte Count 1.06 X10^3/uL (0.83-4.51); Absolute Neutrophil Count 6.9 X10^3/uL (2.0-7.7); Basophil# 0.01 X10^3/uL; Basophil% 0.1 % (0-1); Eosinophil# 0.08 X10^3/uL; Eosinophils% 0.9 % (0-5); Hematocrit 36.8 % (37-47); Hemoglobin 12.1 g/dL (12.0-15.0); Lymphocyte # 1.06 X10^3/ul (0.83-4.51); Lymphocyte % 12.5 % (19-41); Mean Corp Hgb Conc 32.9 g/dL (32-36); Mean Corpuscular Hgb 28.9 pg (27.0-32.0); Mean Corpuscular Volume 87.8 fL (81-99); Mean Platelet Vol. 9.5 fl (6.2-12.0); Monocyte# 0.39 X10^3/uL; Monocyte% 4.6 % (0-10); NRBC Flagged by Analyzer 0 % (0-5); Neutrophil # 6.88 X10^3/uL (2.7-7.7); Neutrophil % 81.4 % (47-70); Platelet Count 311 K/mm3 (150-450); RBC Distribution Width CV 12.1 % (11.6-14.6); RBC Distribution Width SD 38.6 fl (35.1-43.9); Red Blood Count 4.19 M/mm3 (4.2-5.4); White Blood Count 8.5 K/mm3 (4.4-11.0)
[2024-07-30 11:28] LABS: HIV - WCH Non-Reactive (Nonreactive); Syphilis Antibodies Non-reactive
[2024-07-30 11:38] LABS: Glucose Challenge Gest 1H 50g 138 mg/dL (70-140)
== END | disposition home or self-care (01) ==
LOC: LAB 09:59
PROVIDERS: PCP Family Medicine; Referring Provider Advanced Practice Midwife; Visit Provider Advanced Practice Midwife
DX: O09.90 Supervision of high risk pregnancy, unspecified, unspecified trimester (principal); Z3A.00 Weeks of gestation of pregnancy not specified; Z13.1 Encounter for screening for diabetes mellitus
CPT/HCPCS: 36415; 82950; 85025; 86703; 86780

== ENCOUNTER → 2024-08-05 | Outpatient (CLI) | payer OTHER, SELFPAY ==
[2024-08-05 08:55] LABS: Bedside Glucose 92 mg/dL (74-106)
[2024-08-05 09:03] LABS: Glucose GTT-Gestation. Fasting 105 mg/dL (<105)
[2024-08-05 10:08] LABS: Glucose GTT-Gestational 1 Hr 130 mg/dL (<190)
[2024-08-05 10:43] LABS: Glucose GTT-Gestational 2 Hr 110 mg/dL (<165)
[2024-08-05 12:35] LABS: Glucose GTT-Gestational 3 Hr 107 L (<145)
== END | disposition home or self-care (01) ==
LOC: LAB 07:54
PROVIDERS: PCP Family Medicine; Referring Provider Advanced Practice Midwife; Visit Provider Advanced Practice Midwife
DX: Z13.1 Encounter for screening for diabetes mellitus (principal)
CPT/HCPCS: 36415; 82951; 82952; 82962

== ENCOUNTER → 2024-09-25 | Outpatient (CLI) | payer SELFPAY, OTHER ==
--- NOTE | 2024-09-25 12:21 | US_ITS ---
STUDY: SECOND AND THIRD TRIMESTER OBSTETRICAL ULTRASOUND REASON FOR EXAM: Female, 28 years old hx oligo a prior . LMP: January 18, 2024. TECHNIQUE: Transabdominal TECHNICAL QUALITY: Adequate. PRIOR ULTRASOUND: Comparison is made with prior study dated June 07, 2024. FINDINGS: There is a single intrauterine fetus. The fetus is in a cephalic presentation. There is demonstrated cardiac activity with a heart rate of 141 bpm. There is a normal amniotic fluid volume. The largest amniotic fluid pocket measures 6.2 cm. The amniotic fluid index (IZZY) is 16.3 cm. The placenta is posterior and lateral in location and is not low lying. There are Grade 1 placental changes. The adnexal regions are not visualized. BIOMETRY: BPD: 8.96 cm: 36 weeks, 2 days: 70% HC: 32.31 cm: 36 weeks, 4 days: 34% AC: 33.64 cm: 37 weeks, 4 days: 94% FL: 6.53 cm: 33 weeks, 5 days: 5% CI: 80% FL/BPD: 73% FL/HC: 20% FL/AC: 19% HC/AC: 0.96 age by current US: 36 weeks, 2 days. TOMMIE by current US: October 21, 2024. Estimated weight: 2940 grams, +/- 441 grams, 67 %. age by prior US: 35 weeks, 2 days. TOMMIE by prior US: October 28, 2024. Age by LMP: 35 weeks, 6 days. TOMMIE by LMP: October 24, 2024. US/OB Limited With Biometrics IMPRESSION: Single live intrauterine gestation with mean gestational age of 35 weeks and 2 days. The measurements obtained today fall within normal expected range. Electronically Signed: Adi Acuna MD at 14:27 EDT ,
== END | disposition home or self-care (01) ==
LOC: US 12:17
PROVIDERS: PCP Family Medicine; Referring Provider Advanced Practice Midwife; Visit Provider Advanced Practice Midwife
DX: Z87.59 Personal history of other complications of pregnancy, childbirth and the puerperium (principal)
CPT/HCPCS: 76816

== ENCOUNTER → 2024-10-02 | Outpatient (CLI) | payer SELFPAY, OTHER ==
[2024-10-02 15:08] LABS: Glucose Challenge Gest 1H 50g 139 mg/dL (70-140)
== END | disposition home or self-care (01) ==
PROVIDERS: Advanced Practice Midwife; PCP Family Medicine; Referring Provider Obstetrics & Gynecology; Visit Provider Obstetrics & Gynecology
DX: O09.90 Supervision of high risk pregnancy, unspecified, unspecified trimester (principal); Z3A.00 Weeks of gestation of pregnancy not specified
CPT/HCPCS: 36415; 82950; 87081

== ENCOUNTER 2024-10-21 07:48 | Inpatient (IN) | payer SELFPAY, OTHER ==
[2024-10-21] VITALS (68 sets, daily range): BP systolic 107–152; BP diastolic 59–96; PULSE 82–113; RESP 16–18; TEMP 36.5–37.3; O2SAT 81–100; BMI 28.3
[2024-10-21] MEDS: Lactated Ringers 1,000 ML 50 ML IV (07:55)
[2024-10-21 08:16] LABS: Absolute Lymphocyte Count 1.19 X10^3/uL (0.83-4.51); Absolute Neutrophil Count 4.7 X10^3/uL (2.0-7.7); Basophil# 0.01 X10^3/uL; Basophil% 0.2 % (0-1); Eosinophil# 0.06 X10^3/uL; Eosinophils% 0.9 % (0-5); Hematocrit 37.3 % (37-47); Hemoglobin 12.5 g/dL (12.0-15.0); Lymphocyte # 1.19 X10^3/ul (0.83-4.51); Lymphocyte % 18.1 % (19-41); Mean Corp Hgb Conc 33.5 g/dL (32-36); Mean Corpuscular Hgb 28.9 pg (27.0-32.0); Mean Corpuscular Volume 86.3 fL (81-99); Mean Platelet Vol. 10.9 fl (6.2-12.0); Monocyte# 0.54 X10^3/uL; Monocyte% 8.2 % (0-10); NRBC Flagged by Analyzer 0 % (0-5); Neutrophil # 4.74 X10^3/uL (2.7-7.7); Neutrophil % 72.1 % (47-70); Platelet Count 245 K/mm3 (150-450); RBC Distribution Width CV 12.6 % (11.6-14.6); RBC Distribution Width SD 39.3 fl (35.1-43.9); Red Blood Count 4.32 M/mm3 (4.2-5.4); White Blood Count 6.6 K/mm3 (4.4-11.0)
[2024-10-21] MEDS: Oxytocin 15 Units/NS 250ml 15 UNITS/250 ML IV.SOLN 2 UNITS IV (08:19)
[2024-10-21 09:04] LABS: Syphilis Antibodies Non-reactive
[2024-10-21 09:18] LABS: Bedside Glucose 96 mg/dL (74-106)
[2024-10-21 09:28] LABS: Bedside Glucose 88 mg/dL (74-106)
[2024-10-21 13:33] LABS: Bedside Glucose 75 mg/dL (74-106)
[2024-10-21] MEDS: Lactated Ringers 1,000 ML 999 ML IV (14:53)
[2024-10-21] MEDS: fentaNYL-bupivacaine (epidural) 100 ML BAG EPIDURAL ×2 (15:46→20:20)
[2024-10-21 18:04] LABS: Bedside Glucose 74 mg/dL (74-106)
[2024-10-21 19:05] LABS: Bedside Glucose 83 mg/dL (74-106)
[2024-10-21 20:09] LABS: Bedside Glucose 69 mg/dL (74-106)
[2024-10-21 21:27] LABS: Bedside Glucose 91 mg/dL (74-106)
[2024-10-21] MEDS: Oxytocin 15 Units/NS 250ml 15 UNITS/250 ML IV.SOLN 83 UNITS IV (21:30)
[2024-10-21 22:36] LABS: Bedside Glucose 102 mg/dL (74-106)
[2024-10-22 02:41] VITALS: BP 118/70; PULSE 98; O2SAT 97
[2024-10-22 02:45] VITALS: BP 118/70; PULSE 96; RESP 14; TEMP 36.5; O2SAT 98
[2024-10-22 06:01] LABS: Bedside Glucose 93 mg/dL (74-106)
[2024-10-22] MEDS: Ibuprofen 600 MG Tablet PO ×2 (08:13→20:24)
[2024-10-22 08:15] VITALS: BP 114/82; PULSE 82; RESP 16; TEMP 36.9
[2024-10-22 12:24] VITALS: BP 125/88; PULSE 90; RESP 16; TEMP 36.6
[2024-10-22 15:24] VITALS: BP 119/91; PULSE 84; RESP 16; TEMP 36.8
[2024-10-22 20:26] VITALS: BP 124/89; PULSE 91; RESP 14; O2SAT 100
[2024-10-23 03:27] VITALS: BP 118/75; PULSE 79; RESP 16
[2024-10-23] MEDS: Ibuprofen 600 MG Tablet PO (08:47)
[2024-10-23 08:55] VITALS: BP 126/85; PULSE 83; RESP 16; TEMP 36.3; O2SAT 100
[2024-10-23 12:00] VITALS: BP 104/78; PULSE 79; RESP 16; TEMP 36.6; O2SAT 99
== END 2024-10-23 13:30 | disposition home or self-care (01) | DRG 807 ==
PROVIDERS: Admitting Provider Obstetrics & Gynecology; PCP Family Medicine; Visit Provider Obstetrics & Gynecology
DX: O24.420 Gestational diabetes mellitus in childbirth, diet controlled (principal); Z37.0 Single live birth; O34.219 Maternal care for unspecified type scar from previous cesarean delivery; O69.81X0 Labor and delivery complicated by cord around neck, without compression, not applicable or unspecified; O70.1 Second degree perineal laceration during delivery; Z3A.39 39 weeks gestation of pregnancy; Z87.59 Personal history of other complications of pregnancy, childbirth and the puerperium
CPT/HCPCS: 59025; 59050; 82962; 85025; 86780; 86850; 86900; 86901; 99221; J7120; G0378